=== PATIENT | female | born 2000 | race Caucasian/White ===

== ENCOUNTER 2023-01-03 23:14 | Emergency (ER) | payer MEDICAID, SELFPAY ==
[2023-01-03 23:21] VITALS: BP 111/63; PULSE 91; RESP 18; TEMP 36.6; O2SAT 97; BMI 21.2
[2023-01-04 01:31] VITALS: BP 110/71; PULSE 82; RESP 12; TEMP 36.9; O2SAT 98
--- NOTE | 2023-01-04 01:32 | PC.NURSE ---
Pt declines hand x-ray at this time.
--- NOTE | 2023-01-04 02:39 | PC.NURSE ---
Pt left without being seen. Not in the exam room.
== END 2023-01-04 02:41 | disposition left against medical advice (07) ==
PROVIDERS: Emergency Provider Emergency Medicine Emergency Medical Services
DX: S69.92XA Unspecified injury of left wrist, hand and finger(s), initial encounter (principal); X58.XXXA Exposure to other specified factors, initial encounter; Y93.9 Activity, unspecified; Y92.9 Unspecified place or not applicable; Y99.9 Unspecified external cause status
CPT/HCPCS: 99281; 99283